=== PATIENT | female | born 1980 | race Hispanic/Latino ===

== ENCOUNTER → 2018-10-14 | Day surgery (SDC) | payer OTHER ==
[2018-10-05 15:22] LABS: BASOPHILS # (AUTO) 0.1 (0.0-0.1); BASOPHILS % 0.5 % (0.0-1.0); EOSINOPHILS # (AUTO) 0.5 (0.0-0.4); EOSINOPHILS % 5.7 % (0.0-6.0); HEMATOCRIT 39.8 % (34.2-44.1); HEMOGLOBIN 13.3 g/dL (12.0-16.0); LYMPHOCYTES % 32.7 % (18.0-39.1); MEAN CORPUSCULAR HEMOGLOBIN 28.7 pg (28-32); MEAN CORPUSCULAR HGB CONC 33.4 g/dL (31-35); MEAN CORPUSCULAR VOLUME 85.8 fL (81-99); MONOCYTES # (AUTO) 0.7 (0.2-0.8); MONOCYTES % 7.4 % (4.4-11.3); NEUTROPHILS # (AUTO) 4.9 (2.1-6.9); NEUTROPHILS % 53.4 % (38.7-80.0); PLATELET COUNT 419 x10e3/uL (140-360); RED BLOOD COUNT 4.64 x10e6/uL (3.6-5.1); RED CELL DISTRIBUTION WIDTH 12.6 % (11.7-14.4)
[2018-10-05 15:49] LABS: ANION GAP 15.6 mmol/L (8-16); BLOOD UREA NITROGEN 13 mg/dL (7-26); BUN/CREATININE RATIO 19 (6-25); CALCIUM 9.2 mg/dL (8.4-10.2); CARBON DIOXIDE 22 mmol/L (22-29); CHLORIDE 105 mmol/L (98-107); CREATININE, SERUM 0.67 mg/dL (0.57-1.11); EST GLOMERULAR FILTRATION RATE > 60 ML/MIN (60-); GLUCOSE 103 mg/dL (74-118); POTASSIUM 3.6 mmol/L (3.5-5.1); SODIUM 139 mmol/L (136-145)
[~2018-10-14] MED LIST: ACETAMINOPHEN 1000 MG/100 ML 100 ML IV ONE; BETAMETHASONE DISODIUM PHOS 6 MG/ML VIAL ONE; BUPIVACAINE HCL 0.5% INJ 30 ML VIAL INJ ONE; CEFAZOLIN SOD 1 GM/NS 50ML 50 ML IV ONE; DEXAMETHASONE SOD PHOS INJ 4 MG/ML VIAL ONE; FENOPROFEN CAL600 MG PO; FENTANYL CITRATE/PF 100MCG/2 ML INJ ONE; FLONASE; HYDROMORPHONE 2MG/ML 2 MG/ML ML ONE; KETOROLAC TROMETHAMINE 30 MG/ML VIAL ONE; LIDOCAINE HCL 1% LOCAL INJ 20 ML VIAL ONE; LIDOCAINE HCL 2% LOCAL INJ 5 ML SDV VIAL INJ ONE; MIDAZOLAM HCL 2 MG/2 ML VIAL ONE; MORPHINE SULFATE INJ 4 MG/ML INJ 1ML ONE; MUPIROCIN 2% OINT 22 GM TUBE ONE; ONDANSETRON HCL INJ 2MG/ML 2ML 2 MG/ML VIAL ONE; PROPOFOL IV EMULSION 10 MG/ML 20 ML VIAL ONE; SEVOFLURANE INHAL SOLN 250 ML PEN BTL ONE; SINGULAIR10 MG PO
--- OUTSIDE RECORDS SUMMARY | 2018-10-14 06:22 | XMS REPORT | Clinical Summary ---
Author Author [facility] Organization [facility] Address Unknown Phone Unavailable Care Team Providers Care Donor Relations Manager Name Role Phone Vinicius Quinonez MD PCP Allergies Comments Active Allergy Reactions Severity Noted Date No Known Drug Allergies Medications End Date Status Medication Sig Dispensed Refills Start Date Active fexofenadine (MILTON) 60 Take 60 mg by 0 MG tablet mouth daily. Active montelukast (SINGULAIR) Take 1 tablet 90 tablet 1 10 mg tabletIndications: (10 mg total) 9 Environmental allergies by mouth nightly. Active fluticasone (FLONASE) 50 SPRAY 2 16 mL 0 mcg/actuation nasal SPRAYS INTO 9 sprayIndications: EACH NOSTRIL Environmental allergies, EVERY DAY Sinus pressure, Sensation of fullness in both ears 10/20/2017 Discontinued sodium,potassium,mag Dispense kit 1 Bottle 0 sulfates (SUPREP BOWEL and follow 8 PREP KIT) 17.5-3.13-1.6 directions gram recon soln per office 08/25/2018 Discontinued lidocaine (XYLOCAINE) 5 % Apply 2 to 4 3 ointment grams TO THE 8 foot/toe 3 to 4 times a day NEEDED for pain 09/25/2018 Discontinued fluticasone (FLONASE) 50 2 sprays (100 15.8 mL 0 mcg/actuation nasal mcg total) by 9 sprayIndications: Each Nare Environmental allergies, route daily. Sinus pressure, Sensation of fullness in both ears Active Problems Problem Noted Date Radial styloid tenosynovitis 12/20/2016 Comments Yes Encounters Care Team Description Date Type Specialty Socorro Ying MD Environmental allergies; Sinus pressure; Sensation of fullness in both ears 09/25/2018 Refill Internal Medicine Maria Grant MA 08/31/2018 Telephone Internal Medicine Socorro Ying MD Routine general medical examination at a health care facility (Primary Dx); Establishing care with new doctor, encounter for; Dietary counseling; Exercise counseling; Cervical cancer screening; Environmental allergies; Sinus pressure; Sensation of fullness in both ears 08/25/2018 Office Visit Internal Medicine Monico Gallardo MD Right upper quadrant abdominal pain 11/17/2017 Hospital Radiology Encounter Monico Gallardo MD Right upper quadrant abdominal pain 10/20/2017 Lab Lab Monico Gallardo MD Right upper quadrant abdominal pain (Primary Dx) 10/20/2017 Office Visit Gastroenterology Zoie Ferrera MA 10/15/2017 Telephone Gastroenterology Monico Gallardo MD 10/13/2017 Lab Lab after 10/13/2017 Family History Medical History Relation Name Comments No Known Problems Father Hypertension Mother Colon cancer Neg Hx Colon polyps Neg Hx Relation Name Status Comments Father Alive Mother Alive Social History Date Tobacco Use Types Packs/Day Years Used Never Smoker Smokeless Tobacco: Never Used Alcohol Use Drinks/Week oz/Week Comments Yes Comments Yes Sex Assigned at Date Recorded Not on file Industry Job Start Date Occupation Not on file Not on file Not on file Travel End Travel History Travel Start No recent travel history available. Last Filed Vital Signs Time Taken Vital Sign Reading 08/25/2018 2:59 PM [facility] Blood Pressure 133/85 08/25/2018 2:59 PM [facility] Pulse 67 - Temperature - - Respiratory Rate - - Oxygen Saturation - - Inhaled Oxygen - Concentration 08/25/2018 2:59 PM [facility] Weight 86.2 kg (190 lb) 08/25/2018 2:59 PM [facility] Height 160 cm (5' 3") 08/25/2018 2:59 PM [facility] Body Mass Index 33.66 Plan of Treatment Health Maintenance Due Date Last Done Comments CERVICAL CANCER SCREENING 07/29/2019 07/29/2016 INFLUENZA VACCINE Completed 04/18/2018 Procedures Comments Procedure Name Priority Date/Time Associated Diagnosis URINALYSIS, COMPLETE, Routine 08/25/2018 Routine general medical WITH REFLEX TO CULTURE 3:45 PM [facility] examination at a health care facility THYROID STIMULATING Routine 08/25/2018 Routine general medical HORMONE 3:45 PM [facility] examination at a health care facility T4, FREE Routine 08/25/2018 Routine general medical 3:45 PM [facility] examination at a health care facility LIPID PANEL Routine 08/25/2018 Routine general medical 3:45 PM [facility] examination at a health care facility HEMOGLOBIN A1C Routine 08/25/2018 Routine general medical 3:45 PM [facility] examination at a health care facility COMPREHENSIVE METABOLIC Routine 08/25/2018 Routine general medical PANEL 3:45 PM [facility] examination at a health care facility CBC WITH PLATELET AND Routine 08/25/2018 Routine general medical DIFFERENTIAL 3:45 PM [facility] examination at a health care facility US ABDOMEN COMPLETE Routine 11/17/2017 Right upper quadrant 11:22 AM CDT abdominal pain LIPASE LEVEL Routine 10/20/2017 Right upper quadrant 10:40 AM [facility] abdominal pain AMYLASE LEVEL Routine 10/20/2017 Right upper quadrant 10:40 AM [facility] abdominal pain COMPREHENSIVE METABOLIC Routine 10/20/2017 Right upper quadrant PANEL 10:40 AM [facility] abdominal pain CBC HEMOGRAM Routine 10/20/2017 Right upper quadrant 10:40 AM [facility] abdominal pain SURGICAL PATHOLOGY Routine 10/13/2017 REQUEST 10:40 AM [facility] after 10/13/2017 Results * URINALYSIS, COMPLETE, WITH REFLEX TO CULTURE (08/25/2018 3:45 PM [facility]) Color, UA YELLOW YELLOW [facility] [place] Appearance CLEAR CLEAR [facility] [place] Specific gravity, urine 1.025 1.001 - 1.035 [facility] [place] pH, urine < OR=5.0 5.0 - 8.0 [facility] [place] Glucose, urine NEGATIVE NEGATIVE [facility] [place] Bilirubin, UA NEGATIVE NEGATIVE [facility] [place] Ketones, UA NEGATIVE NEGATIVE [facility] [place] Occult blood, urine NEGATIVE NEGATIVE [facility] [place] Protein, UA NEGATIVE NEGATIVE [facility] [place] Nitrite, UA NEGATIVE NEGATIVE [facility] [place] Leukocyte esterase, UA NEGATIVE NEGATIVE [facility] [place] WBC, UA 0-5 < OR=5 /HPF [facility] [place] RBC, UA 0-2 < OR=2 /HPF [facility] [place] Squamous epithelial 6-10 (A) < OR=5 /HPF [facility] cells, UA [place] Bacteria, UA FEW (A) NONE SEEN /HPF [facility] [place] Hyaline casts, UA NONE SEEN NONE SEEN /LPF [facility] [place] Comment FEW MUCOUS THREADS [facility] [place] Reflex NO CULTURE INDICATED [facility] [place] Narrative Performed At FASTING:YES [facility] FASTING: YES Resulting Agency Comment Performing Organization Information: Site ID: [id number] Name: [facility] Address: [address] [place] [id number] Director: Desirae Scott Performing Organization Address City/State/Zipcode Phone Number [facility] [place] [address] [place] [phone] * CBC with platelet and differential (08/25/2018 3:45 PM [facility]) WBC 6.2 3.8 - 10.8 Thousand/uL [facility] [place] RBC 4.84 3.80 - 5.10 Million/uL [facility] [place] HGB 13.8 11.7 - 15.5 g/dL [facility] [place] HCT 40.9 35.0 - 45.0 % [facility] [place] MCV 84.5 80.0 - 100.0 fL [facility] [place] MCH 28.5 27.0 - 33.0 pg [facility] [place] MCHC 33.7 32.0 - 36.0 g/dL [facility] [place] RDW 12.3 11.0 - 15.0 % [facility] [place] Platelet count 422 (H) 140 - 400 Thousand/uL [facility] [place] MPV 10.1 7.5 - 12.5 fL [facility] [place] Neutrophils, absolute 2,957 1,500 - 7,800 cells/uL [facility] [place] Lymphocytes, absolute 2,561 850 - 3,900 cells/uL [facility] [place] Monocytes, absolute 347 200 - 950 cells/uL [facility] [place] Eosinophils, absolute 273 15 - 500 cells/uL [facility] [place] Basophils, absolute 62 0 - 200 cells/uL [facility] [place] Neutrophils 47.7 % [facility] [place] Lymphocytes 41.3 % [facility] [place] Monocytes 5.6 % [facility] [place] Eosinophils 4.4 % [facility] [place] Basophils + RC 1.0 % [facility] [place] Specimen Blood Narrative Performed At FASTING:YES [facility] FASTING: YES Resulting Agency Comment Performing Organization Information: Site ID: [id number] Name: [facility] Address: [address] [place] [phone] Director: Desirae Scott Performing Organization Address [facility] [place] [address] * Thyroid stimulating hormone (08/25/2018 3:45 PM [facility]) TSH 2.92 mIU/L [facility] Comment: [place] Reference Range > or=20 Years0.40-4.50 Ranges First trimester0.26-2.66 Second trimester 0.55-2.73 Third trimester0.43-2.91 Specimen Blood Narrative Performed At FASTING:YES [facility] FASTING: YES Resulting Agency Comment Performing Organization Information: Site ID: [facility]GA Name: [facility] Address: [address] [place] [address] Director: Desirae Scott Performing Organization Address [facility] [place] [address] * T4, free (08/25/2018 3:45 PM [facility]) T4, free 1.3 0.8 - 1.8 ng/dL [facility] [place] Specimen Blood Narrative Performed At FASTING:YES [facility] FASTING: YES Resulting Agency Comment Performing Organization Information: Site ID: RGA Name: [facility] Address: [address] [place], [place] [id number] Director: Desirae Scott Performing Organization Address [facility] [place] [address] * Hemoglobin A1c (08/25/2018 3:45 PM [facility]) Hemoglobin A1C 5.2 <5.7 % of total Hgb [facility] Comment: [place] For the purpose of screening for the presence of diabetes: <5.7% Consistent with the absence of diabetes 5.7-6.4%Consistent with increased risk for diabetes (predi abetes) > or=6.5%Consistent with diabetes This assay result is consistent with a decreased risk of diabetes. Currently, no consensus exists regarding use of hemoglobin A1c for diagnosis of diabetes in children. According to [place] Diabetes Association (ADA) guidelines, hemoglobin A1c <7.0% represents optimal control in non- diabetic patients. Different metrics may apply to specific patient populations. Standards of Medical Care in Diabetes(ADA). Specimen Blood Narrative Performed At FASTING:YES [facility] FASTING: YES Resulting Agency Comment Performing Organization Information: Site ID: [facility]EL Name: [facility] Address: [address] [place] [phone] Director: Desirae Scott Performing Organization Address [facility] Phone Number [place] [employer] [place] [address] * Lipid panel (08/25/2018 3:45 PM [facility]) Cholesterol, total 250 (H) <200 mg/dL [facility] HDL cholesterol 68 >50 mg/dL [facility] [place] Triglycerides 139 <150 mg/dL [facility] LDL cholesterol 156 (H) mg/dL (calc) [facility] calculated Comment: [place] Reference range: <100 Desirable range <100 mg/dL for primary prevention; <70 mg/dL for patients with CHD or diabetic patients with > or=2 CHD risk factors. LDL-C is now calculated using the Sanchez-Milo calculation, which is a validated novel method providing better accuracy than the Friedewald equation in the estimation of LDL-C. Sanchez GALLEGOS et al. WINSOME. 2013;310(19): 8857-6748 (http://education.Run2Sport.ViFlux/faq/SXJ988) Cholesterol/HDL ratio 3.7 <5.0 (calc) [facility] [place] Non-HDL cholesterol 182 (H) <130 mg/dL (calc) [facility] Comment: [place] For patients with diabetes plus 1 major ASCVD risk factor, treating to a non-HDL-C goal of <100 mg/dL (LDL-C of <70 mg/dL) is considered a therapeutic option. Specimen Blood Narrative Performed At FASTING:YES [facility] FASTING: YES Resulting Agency Comment Performing Organization Information: Site ID: [facility]ANTEL Name: [facility] Address: [address] [place] [phone] Director: Desirae Scott Performing Organization Address [facility]/Zipcode Phone Number [place] [facility] [place] [address] [place] [address] * Comprehensive metabolic panel (08/25/2018 3:45 PM [facility]) Only the most recent of 2 results within the time period is included. Glucose 89 65 - 99 mg/dL [facility] Comment: [place] Fasting reference interval BUN, whole blood 12 7 - 25 mg/dL [facility] Creatinine 0.41 (L) 0.50 - 1.10 mg/dL [facility] [place] EGFR Non-Afr. [place] 133 > OR=60 mL/min/1.73m2 [facility] [place] EGFR 154 > OR=60 mL/min/1.73m2 [facility] BUN/creatinine ratio 29 (H) 6 - 22 (calc) [facility] [place] Sodium 141 135 - 146 mmol/L [facility] [place] Potassium 4.0 3.5 - 5.3 mmol/L [facility] [place] Chloride 104 98 - 110 mmol/L [facility] CO2 26 20 - 32 mmol/L [facility] [place] Calcium 9.3 8.6 - 10.2 mg/dL [facility] Protein 7.0 6.1 - 8.1 g/dL [facility] Albumin, S 4.4 3.6 - 5.1 g/dL [facility] Globulin, total 2.6 1.9 - 3.7 g/dL (calc) [facility] Albumin/globulin ratio 1.7 1.0 - 2.5 (calc) [facility] Total bilirubin 0.5 0.2 - 1.2 mg/dL [facility] Alkaline phosphatase 89 33 - 115 U/L [facility] AST 16 10 - 30 U/L [facility] ALT 14 6 - 29 U/L [facility] [place] Specimen Blood Narrative Performed At FASTING:YES [facility] FASTING: YES Resulting Agency Comment Performing Organization Information: Site ID: [id number] Name: [facility] Address: [address] [place] [phone] Director: Desirae Scott Performing Organization Address City/State/Zipcode Phone Number [employer] [place] [phone] * US Abdomen Complete (11/17/2017 11:22 AM CDT) Narrative Performed At EXAM: US ABDOMEN COMPLETE [facility] CLINICAL DATA:Right upper abdominal pain COMPARISON: None. FINDINGS: LIVER:The liver demonstrates normal echogenicity without focal mass or intrahepatic biliary ductal dilatation. MPV:Doppler evaluation of the portal vein demonstrates normal hepatopetal flow. GALLBLADDER:The gallbladder is without evidence of calculi. The gallbladder wall is not thickened and there is no pericholecystic fluid. CBD: Common bile duct is not dilated measuring 3 mm. PANCREAS:The visualized portions of the pancreas are within normal limits. SPLEEN:The spleen is homogeneous and not enlarged. KIDNEYS:The kidneys are normal in size and echogenicity. There is no evidence of hydronephrosis. AORTA:The visualized upper abdominal aorta demonstrates no evidence of ectasia or aneurysm. IVC:The visualized portions of the inferior vena cava are unremarkable. ASCITES: No abnormal abdominal fluid collections are visualized. There is no evidence of ascites. PLEURAL EFFUSION:There are no pleural effusions. IMPRESSION: Normal abdominal ultrasound examination. [facility]-[id number] Procedure Note Interface, Radiology Results Incoming - 11/17/2017 11:40 AM CDT EXAM: US ABDOMEN COMPLETE CLINICAL DATA: Right upper abdominal pain COMPARISON: None. FINDINGS: LIVER: The liver demonstrates normal echogenicity without focal mass or intrahepatic biliary ductal dilatation. MPV: Doppler evaluation of the portal vein demonstrates normal hepatopetal flow. GALLBLADDER: The gallbladder is without evidence of calculi. The gallbladder wall is not thickened and there is no pericholecystic fluid. CBD: Common bile duct is not dilated measuring 3 mm. PANCREAS: The visualized portions of the pancreas are within normal limits. SPLEEN: The spleen is homogeneous and not enlarged. KIDNEYS: The kidneys are normal in size and echogenicity. There is no evidence of hydronephrosis. AORTA: The visualized upper abdominal aorta demonstrates no evidence of ectasia or aneurysm. IVC: The visualized portions of the inferior vena cava are unremarkable. ASCITES: No abnormal abdominal fluid collections are visualized. There is no evidence of ascites. PLEURAL EFFUSION: There are no pleural effusions. IMPRESSION: Normal abdominal ultrasound examination. [facility]-[id number] Performing Organization Address City/State/Zipcode Phone Number [facility] [address] [place] [address] * CBC hemogram (10/20/2017 10:40 AM [facility]) WBC 5.7 3.8 - 10.8 Thousand/uL [facility] [place] RBC 4.66 3.80 - 5.10 Million/uL [facility] [place] HGB 13.1 11.7 - 15.5 g/dL [facility] HCT 39.7 35.0 - 45.0 % [facility] MCV 85.2 80.0 - 100.0 fL [facility] [place] MCH 28.1 27.0 - 33.0 pg [facility] [place] MCHC 33.0 32.0 - 36.0 g/dL [facility] [place] RDW 12.9 11.0 - 15.0 % [facility] [place] Platelet count 416 (H) 140 - 400 Thousand/uL [facility] [place] MPV 10.2 7.5 - 12.5 fL [facility] [place] Specimen Blood Resulting Agency Comment Performing Organization Information: Site ID: RGA Name: [facility] Address: [address] [place], [place] [id number] Director: Desirae Scott MD Performing Organization Address City/State/[facility] [place] [address] * Lipase level (10/20/2017 10:40 AM [facility]) Lipase 9 7 - 60 U/L [facility] [place] Specimen Blood Resulting Agency Comment Performing Organization Information: Site ID: RGA Name: [facility] Address: [address] [place] [address] Director: Desirae Scott MD Performing Organization Address City/[facility] [place]erc[place] [address] * Amylase level (10/20/2017 10:40 AM [facility]ER) Amylase 26 21 - 101 U/L [facility] [place] Specimen Blood Resulting Agency Comment Performing Organization Information: Site ID: [facility] Name: [facility] Address: [address] [place] [phone] Director: Desirae Scott MD Performing Organization Address City/[facility] [place]ercode [place] [address] * Surgical pathology request (10/13/2017 10:40 AM [facility]ER) [facility] DEPARTMENT OF PATHOLOGY AND GENOMIC MEDICINE Surgical pathology report See link below for PDF Lab [facility] DEPARTMENT OF Report PATHOLOGY AND GENOMIC MEDICINE Result status This is Final Report to [facility] DEPARTMENT OF [id number] PATHOLOGY AND GENOMIC MEDICINE Performing Organization Address City/State/Zipcode Phone Number [facility] DEPARTMENT OF [address] [place] [phone] PATHOLOGY AND GENOMIC MEDICINE after 10/13/2017 Insurance Payer Benefit Subscriber ID Type Phone Address Plan / Group CIGNA CIGNA OPEN xxxxxxxxxxx HMO ACCESS/NET WORK Advance Directives Patient has advance care planning documents on file. For more information, modesta ruiz contact: Davidson Tran [address] [place] [address]
--- OUTSIDE RECORDS SUMMARY | 2018-10-14 06:23 | XMS REPORT | Summary of Care ---
Author Author [facility] Organization [facility] Address Unknown Phone Unavailable Encounter ESTEBAN Miller(MICHAEL) [id number] Date(s): 09/25/16 - 09/25/16 [facility] [address] [place] [address]- Discharge Diagnosis: Abdominal pain Discharge Disposition: Home or Self Care Attending Physician: Imtiaz Davis MD Vital Signs Most recent to 1 2 oldest [Reference Range]: Height 160.02 cm (09/25/16 4:21 PM) Temperature Oral 98 DegF 98.3 DegF [96.4-99.1 DegF] (09/25/16 10:15 PM) (09/25/16 4:21 PM) Blood Pressure 150/80 mmHg 151/83 mmHg [90-140/60-90 mmHg] *HI* *HI* (09/25/16 10:15 PM) (09/25/16 4:21 PM) Respiratory Rate 18 BRMIN 18 BRMIN [14-20 BRMIN] (09/25/16 10:15 PM) (09/25/16 4:21 PM) Peripheral Pulse 88 bpm 91 bpm Rate [60-100 bpm] (09/25/16 10:15 PM) (09/25/16 4:21 PM) Weight 87.273 kg (09/25/16 4:21 PM) Body Mass Index 34.08 m2 (09/25/16 4:21 PM) Problem List No data available for this section Allergies, Adverse Reactions, Alerts Substance Reaction Severity Status NKDA Active Medications Saline Flush 0.9% 10 mL, Route: IVP, Drug Form: INJ, Dosing Weight 87.273, kg, PRN, PRN Line Flush , Start date: 09/25/16 16:26:00 SHIPPING ASSISTANT, Duration: 30 day, Stop date: 10/25/16 16:25 :00 SHIPPING ASSISTANT Notes: Same as: BD Posiflush Sterile Start Date: 09/25/16 Stop Date: 09/25/16 Status: Discontinued Ultracet oral tablet 1 tab, PO, Q8H, PRN Pain, X 10 day, # 30 tab, 0 Refill(s) Start Date: 09/25/16 Stop Date: 10/05/16 Status: Ordered Zofran ODT 4 mg oral tablet, disintegrating 4 mg=1 tab, PO, BID, PRN Nausea and Vomiting, Dissolve tab under tongue, X 5 day , # 10 tab, 0 Refill(s) Start Date: 09/25/16 Stop Date: 09/30/16 Status: Ordered Results ELECTROLYTES Most recent to 1 oldest [Reference Range]: Sodium Lvl [135-145 142 mEq/L mEq/L] (09/25/16 8:37 PM) Potassium Lvl 3.6 mEq/L [3.5-5.1 mEq/L] (09/25/16 8:37 PM) Chloride Lvl [95-109 108 mEq/L mEq/L] (09/25/16 8:37 PM) CO2 [24-32 mEq/L] 23 mEq/L *LOW* (09/25/16 8:37 PM) AGAP [10.0-20.0 14.6 mEq/L mEq/L] (09/25/16 8:37 PM) CHEM PANEL Most recent to 1 oldest [Reference Range]: Creatinine Lvl 0.51 mg/dL [0.50-1.40 mg/dL] (09/25/16 8:37 PM) eGFR 126 mL/min/1.73m2 1 *NA* (09/25/16 8:37 PM) BUN [7-22 mg/dL] 7 mg/dL (09/25/16 8:37 PM) B/C Ratio [6-25] 14 (09/25/16 8:37 PM) Glucose Lvl [70-99 88 mg/dL mg/dL] (09/25/16 8:37 PM) Total Protein 6.9 g/dL [6.4-8.4 g/dL] (09/25/16 8:37 PM) Albumin Lvl [3.5-5.0 3.3 g/dL g/dL] *LOW* (09/25/16 8:37 PM) Globulin [2.7-4.2 3.6 g/dL g/dL] (09/25/16 8:37 PM) A/G Ratio [0.7-1.6] 0.9 (09/25/16 8:37 PM) Calcium Lvl 8.2 mg/dL [8.5-10.5 mg/dL] *LOW* (09/25/16 8:37 PM) ALT [0-65 unit/L] 13 unit/L (09/25/16 8:37 PM) AST [0-37 unit/L] 8 unit/L (09/25/16 8:37 PM) Alk Phos [39-136 70 unit/L unit/L] (09/25/16 8:37 PM) Bili Total [0.2-1.3 0.2 mg/dL mg/dL] (09/25/16 8:37 PM) Lipase Lvl [73-393 97 unit/L unit/L] (09/25/16 8:37 PM) 1Result Comment: The eGFR is calculated using the CKD-EPI formula. In most young, healthy individuals the eGFR will be >90 mL/min/1.73m2. The eGFR declines with age. An eGFR of 60-89 may be normal in some populations, particularly the elderly, for whom the CKD-EPI formula has not been extensively validated. Use of the eGFR is not recommended in the following populations: Individuals with unstable creatinine concentrations, including patients and those with serious co-morbid conditions. Patients with extremes in muscle mass or diet. The data above are obtained from the National Kidney Disease Education Program ( NKDEP) which additionally recommends that when the eGFR is used in patients with extremes of body mass index for purposes of drug dosing, the eGFR should be mul tiplied by the estimated BMI. URINE CHEM Most recent to 1 oldest [Reference Range]: U Preg [Negative] Negative (09/25/16 8:37 PM) URINE AND STOOL Most recent to 1 oldest [Reference Range]: UA Turbidity [Clear] Clear (09/25/16 8:37 PM) UA Color [Yellow] Yellow *NA* (09/25/16 8:37 PM) UA pH [5.0-8.0] 6.5 (09/25/16 8:37 PM) UA Spec Grav 1.015 [<=1.030] (09/25/16 8:37 PM) UA Glucose Negative [Negative] (09/25/16 8:37 PM) UA Blood [Negative] Negative (09/25/16 8:37 PM) UA Ketones Negative [Negative] *NA* (09/25/16 8:37 PM) UA Protein Negative [Negative] (09/25/16 8:37 PM) UA Urobilinogen 0.2 EU/dL [0.1-1.0 EU/dL] (09/25/16 8:37 PM) UA Bili [Negative] Negative *NA* (09/25/16 8:37 PM) UA Leuk Est Trace [Negative] *ABN* (09/25/16 8:37 PM) UA Nitrite Negative [Negative] (09/25/16 8:37 PM) UA WBC [None Seen 0-2 /HPF /HPF] (09/25/16 8:37 PM) UA RBC [0-2 /HPF] 0-2 /HPF (09/25/16 8:37 PM) UA Bacteria [None Occasional /HPF Seen /HPF] (09/25/16 8:37 PM) UA Sq Epi [Few /LPF] Few /LPF (09/25/16 8:37 PM) UA Mucus [None Seen] None Seen (09/25/16 8:37 PM) HEMATOLOGY Most recent to 1 oldest [Reference Range]: WBC [3.7-10.4 K/CMM] 8.3 K/CMM (09/25/16 8:37 PM) RBC [4.20-5.40 4.46 M/CMM M/CMM] (09/25/16 8:37 PM) Hgb [12.0-16.0 g/dL] 12.6 g/dL (09/25/16 8:37 PM) Hct [36.0-48.0 %] 37.1 % (09/25/16 8:37 PM) MCV [80.0-98.0 fL] 83.2 fL (09/25/16 8:37 PM) MCH [27.0-31.0 pg] 28.2 pg (09/25/16 8:37 PM) MCHC [32.0-36.0 33.9 g/dL g/dL] (2/8/17 8:37 PM) RDW [11.5-14.5 %] 13.4 % (09/25/16 8:37 PM) Platelet [133-450 318 K/CMM K/CMM] (09/25/16 8:37 PM) MPV [7.4-10.4 fL] 8.4 fL (09/25/16 8:37 PM) Segs [45.0-75.0 %] 46.8 % (09/25/16 8:37 PM) Lymphocytes 37.8 % [20.0-40.0 %] (09/25/16 8:37 PM) Monocytes [2.0-12.0 6.1 % %] (09/25/16 8:37 PM) Eosinophils [0.0-4.0 8.0 % %] *HI* (09/25/16 8:37 PM) Basophils [0.0-1.0 1.3 % %] *HI* (09/25/16 8:37 PM) Segs-Bands # 3.9 K/CMM [1.5-8.1 K/CMM] (09/25/16 8:37 PM) Lymphocytes # 3.1 K/CMM [1.0-5.5 K/CMM] (09/25/16 8:37 PM) Monocytes # [0.0-0.8 0.5 K/CMM K/CMM] (09/25/16 8:37 PM) Eosinophils # 0.7 K/CMM [0.0-0.5 K/CMM] *HI* (09/25/16 8:37 PM) Basophils # [0.0-0.2 0.1 K/CMM K/CMM] (09/25/16 8:37 PM) Immunizations No data available for this section Procedures No data available for this section Social History Social History Type Response Smoking Status Never smoker; Exposure to Tobacco Smoke None; Cigarette Smoking Last 365 Days No; Reg Smoking Cessation Counseling No Assessment and Plan No data available for this section
--- OUTSIDE RECORDS SUMMARY | 2018-10-14 06:23 | XMS REPORT ---
Author Author [facility] Address Unknown Phone Unavailable Care Team Providers Care Holter Technician Name Role Phone UNKNOWN, REFFERING PP Unavailable COLTON SURAJ Unavailable Unavailable Problems This patient has no known problems. Allergies, Adverse Reactions, Alerts This patient has no known allergies or adverse reactions. Medications This patient has no known medications. Encounters Start Date/Time End Date/Time Encounter Type Admission Type Attending Clinicians Care Facility Care Department Encounter ID 2017-07-22 13:19:00 2017-07-22 13:19:00 Emergency E SURAJ SEGURA [facility] [id number] Results Test Description Test Time Test Comments Text Results Atomic Results Result Comments [id number]&PELVIS W/CONTRAST 2017-07-22 15:12:40 CT-H ABDOMEN AND PELVIS W/CONTRASTHISTORY: Right lower quadrant painCOMPARISON: None.TECHNIQUE: Axial images of the abdomen and pelvis were obtainedfollowing the administration of 100 mL Isovue- 300 intravenous contrast.Coronal and sagittal reformats were provided. One or more of thefollowing dose reduction techniques were used: Automated exposurecontrol, adjustment of the mA and/or kV according to patient size,and/or utilization of iterative reconstruction technique.FINDINGS:Lower thorax: The visualized lung bases are clear.Hepatobiliary: Unremarkable. No biliary ductal dilatation.Gallbladder: No calcified gallstones are identified. The gallbladderwall appears normal.Spleen: Unremarkable.Pancreas: Unremarkable.Adrenals: Unremarkable.Kidneys/ureters: Unremarkable.Bowel: No abnormal bowel wall thickening or evidence of obstruction. Theappendix is normal.Pelvic organs/bladder: A 2.5 cm cyst is seen in the right ovary. Theurinary bladder shows mild nonspecific wall thickening. A small amountof gas is seen in the vagina.Vessels: Unremarkable.Lymph nodes: No lymphadenopathy.Peritoneum/Retroperitoneum: No ascites or free air is identified. Thereis no free fluid collection.Bones/soft tissues: No destructive bony lesions.IMPRESSION:1. Normal appendix.2. Mild thickening of the urinary bladder wall. Correlate withurinalysis to exclude UTI.3. Small right ovarian cyst.LOCATION: R16 Lipase 2017-07-22 14:24:00 Lipase (test code=LIP) 17 U/L 13-60 Comprehensive Metabolic [id number] 14:24:00* Test Item Value Reference Range Comments Sodium (test code=NA) 142 mmol/L 135-145 Potassium (test code=K) 3.8 mmol/L 3.5-5.1 Chloride (test code=CL) 105 mmol/L 98-105 Carbon Dioxide (test code=CO2) 27 mmol/L 22-29 Anion Gap (test code=AGAP) 10 mmol/L 7-16 Glucose (test code=GLU) 98 mg/dL 70-115 Blood Urea Nitrogen (test code=BUN) 8 mg/dL 6-20 Creatinine (test code=CREAT) 0.6 mg/dL 0.5-0.9 BUN/Creatinine Ratio (test code=BCRATIO) 13.3 Calcium (test code=CA) 9.5 mg/dL 8.3-10.5 Prot Total (test code=TP) 6.7 g/dL 6.4-8.3 Albumin (test code=ALB) 4.5 g/dL 3.5-5.2 A/G Ratio (test code=AGRATIO) 2.0 Ratio Globulin (test code=GLOB) 2.2 2.9-3.1 Bili Total (test code=TBIL) 0.5 mg/dL 0.1-0.9 Alk Phos (test code=APHOS) 85 U/L 35-104 AST (test code=AST) 19 U/L 1-32 ALT (test code=ALT) 18 U/L 1-33 Estimated GFR (test code=GFR) >60 mL/min/1.73m2 eGFR (estimated Glomerular Filtration Rate) is an estimated value,calculated from the patient's serum creatinine using the MDRD equation.It is NOT the patient's actual GFR. The eGFR provides a more clinicallyuseful measure of kidney disease than serum creatinine alone.This calculation takes sex and race into account, if the informationis provided. If the race is not provided, and the patient isAfrican-[place] Citizen, multiply by 1.212. If sex is not provided, and thepatient is female, multiply by 0.742. Results for patients <18 years ofage have not been validated by the MDRD study and should be interpretedwith caution.eGFR Result Interpretation:eGFR > or=60 is in the Normal RangeeGFR < 60 may mean kidney diseaseeGFR < 15 may mean kidney failureRanges recommended by the National Kidney Foundat ion,http://nkdep.nih.gov BHCG, Serum, [id number] 14:15:00* Test Item Value Reference Range Comments Preg Qual [Se] (test code=BSHCG) Negative Negative CBC with [id number] 14:14:00* Test Item Value Reference Range Comments WBC (test code=WBC) 6.5 K/cumm 4.4-10.5 RBC (test code=RBC) 4.62 M/cumm 3.75-5.20 Hemoglobin (test code=HGB) 13.3 gm/dL 12.2-14.8 Hematocrit (test code=HCT) 39.3 % 36.5-44.4 MCV (test code=MCV) 85.1 fL 80-100 MCH (test code=MCH) 28.8 pg 27.0-32.5 MCHC (test code=MCHC) 33.8 % 32.0-37.5 RDW (test code=RDW) 13.1 % 11.5-14.5 Platelet Count (test code=PLTCT) 397 K/cumm 140-440 MPV (test code=MPV) 10.0 fL Diff Method (test code=DIFFM) Auto Neutrophil (test code=NEUT) 46.3 % 36-70 Lymphocyte (test code=LYMPH) 40.1 % 12-44 Monocyte (test code=MONO) 6.3 % 0-11 Eosinophil (test code=EOS) 7.0 % 0-7 Basophil (test code=BASO) 0.3 % 0-2 Neutro Abs (test code=ANEUT) 3.0 K/cumm 1.6-7.4 Lymph Abs (test code=ALYMPH) 2.6 K/cumm 0.5-4.6 [place] Abs (test code=AMONO) 0.4 K/cumm 0.0-1.2 Eos Abs (test code=AEOS) 0.46 K/cumm 0.00-0.74 Baso Abs (test code=ABASO) 0.0 K/cumm 0.00-0.21 Urinalysis [id number] 13:56:00* Test Item Value Reference Range Comments Color (test code=COLOR) Yellow Yellow,Straw,Pl yellow Clarity (test code=CLAR) Clear Clear Specific Springer (test code=SPGR) 1.015 1.001-1.035 pH (test code=PH) 7.5 5.0-9.0 Ketone (test code=KET) Negative Negative Glucose (test code=GLUCUR) Negative Negative Protein (test code=PROT) Negative Negative Bilirubin (test code=BILI) Negative Negative Occult Blood (test code=UDOB) Negative Negative Urobilinogen (test code=UROB) 1.0 0.2-1.0 Nitrite (test code=NIT) Negative Negative Leuk Esterase (test code=LEUK) Negative Negative Micros Exam (test code=MEXAM) Not indicated
--- OUTSIDE RECORDS SUMMARY | 2018-10-14 06:23 | XMS REPORT | Continuity of Care Document ---
Author Author [facility] Interface Address Unknown Phone Unavailable Problems Problem Status Onset Date Classification Date Reported Comments Source Discharge Diagnosis: Abdominal pain 09/25/2016 09/28/[address] [facility] FEVER/LOW RIGHT SIDE ABDOMINAL PAIN/BACK Active 09/25/[address] [facility] Medications Medication Details Route Status Patient Instructions Ordering Provider Order Date Source Acetaminophen 325 MG / tramadol hydrochloride 37.5 MG Oral Tablet [Ultracet] 1 tab, PO, Q8H, PRN Pain, X 10 day, # 30 tab, 0 Refill(s) Active 09/26/[address] [facility] Ondansetron 4 MG Disintegrating Tablet [Zofran] 4 mg=1 tab, PO, BID, PRN Nausea and Vomiting, Dissolve tab under tongue, X 5 day, # 10 tab, 0 Refill(s) Active 09/26/[address] [facility] Saline Flush 0.9% 10 mL, Route: IVP, Drug Form: INJ, Dosing Weight 87.273, kg, PRN, PRN Line Flush, Start date: 09/25/16 16:26:00 APPRAISAL MANAGER, Duration: 30 day, Stop date: 10/25/16 16:25:00 CSTNotes: Same as: BD Posiflush Sterile Inactive 09/25/[address] [facility] Allergies, Adverse Reactions, Alerts Substance Category Reaction Severity Reaction type Status Date Reported Comments Source Immunizations Immunization Date Given Site Status Last Updated Comments Source Results Order Name Results Value Reference Range Date Interpretation Comments Source CHEM PANEL Lipase Lvl 97 unit/L 73 - 393 09/26/[address] [facility] CHEM PANEL eGFR 126 mL/min/1.73m2 09/26/2016 Result Comment: The eGFR is calculated using the [...] from the National Kidney Disease Education Program (NKDEP) which additionally recommends that when the eGFR is used in patients with extremes of body mass index for purposes of drug dosing, the eGFR should be multiplied by the estimated BMI. [facility] CHEM PANEL Bili Total 0.2 mg/dL 0.2 - 1.3 09/26/[address] [facility] CHEM PANEL Alk Phos 70 unit/L 39 - 136 09/26/[address] [facility] CHEM PANEL ALT 13 unit/L 0 - 65 09/26/[address] [facility] CHEM PANEL AST 8 unit/L 0 - 37 09/26/[address] [facility] CHEM PANEL Albumin Lvl 3.3 g/dL 3.5 - 5.0 09/26/[address] [facility] CHEM PANEL Glucose Lvl 88 mg/dL 70 - 99 09/26/[address] [facility] CHEM PANEL Creatinine Lvl 0.51 mg/dL 0.50 - 1.40 09/26/[address] [facility] CHEM PANEL BUN 7 mg/dL 7 - 22 09/26/[address] [facility] CHEM PANEL Sodium Lvl 142 meq/L 135 - 145 09/26/[address] [facility] CHEM PANEL Potassium Lvl 3.6 meq/L 3.5 - 5.1 09/26/[address] [facility] CHEM PANEL Chloride Lvl 108 meq/L 95 - 109 09/26/[address] [facility] CHEM PANEL Total Protein 6.9 g/dL 6.4 - 8.4 09/26/[address] [facility] CHEM PANEL CO2 23 meq/L 24 - 32 09/26/[address] [facility] CHEM PANEL Calcium Lvl 8.2 mg/dL 8.5 - 10.5 09/26/[address] [facility] CHEM PANEL AGAP 14.6 meq/L 10.0 - 20.0 09/26/[address] [facility] CHEM PANEL B/C Ratio 14 6 - 25 09/26/[address] [facility] CHEM PANEL Globulin 3.6 g/dL 2.7 - 4.2 09/26/[address] [facility] CHEM PANEL A/G Ratio 0.9 0.7 - 1.6 09/26/[address] [facility] HEMATOLOGY Platelet 318 K/CMM 133 - 450 09/26/[address] [facility] HEMATOLOGY RDW 13.4 % 11.5 - 14.5 09/26/[address] [facility] HEMATOLOGY MCHC 33.9 g/dL 32.0 - 36.0 09/26/[address] [facility] HEMATOLOGY MPV 8.4 fL 7.4 - 10.4 09/26/[address] [facility] HEMATOLOGY MCV 83.2 fL 80.0 - 98.0 09/26/[address] [facility] HEMATOLOGY MCH 28.2 pg 27.0 - 31.0 09/26/[address] [facility] HEMATOLOGY Hgb 12.6 g/dL 12.0 - 16.0 09/26/[address] [facility] HEMATOLOGY RBC 4.46 M/CMM 4.20 - 5.40 09/26/[address] [facility] HEMATOLOGY WBC 8.3 K/CMM 3.7 - 10.4 09/26/[address] [facility] HEMATOLOGY Hct 37.1 % 36.0 - 48.0 09/26/[address] [facility] HEMATOLOGY Basophils # 0.1 K/CMM 0.0 - 0.2 09/26/[address] [facility] HEMATOLOGY Lymphocytes # 3.1 K/CMM 1.0 - 5.5 09/26/[address] [facility] HEMATOLOGY Eosinophils # 0.7 K/CMM 0.0 - 0.5 09/26/[address] [facility] HEMATOLOGY Monocytes # 0.5 K/CMM 0.0 - 0.8 09/26/[address] [facility] HEMATOLOGY Segs-Bands # 3.9 K/CMM 1.5 - 8.1 09/26/[address] [facility] HEMATOLOGY Basophils 1.3 % 0.0 - 1.0 09/26/[address] [facility] HEMATOLOGY Eosinophils 8.0 % 0.0 - 4.0 09/26/[address] [facility] HEMATOLOGY Segs 46.8 % 45.0 - 75.0 09/26/[address] [facility] HEMATOLOGY Monocytes 6.1 % 2.0 - 12.0 09/26/[address] [facility] HEMATOLOGY Lymphocytes 37.8 % 20.0 - 40.0 09/26/[address] [facility] URINE AND STOOL UA Mucus None Seen (09/25/16 8:37 PM) None Seen 09/26/[address] [facility] URINE AND STOOL UA Blood Negative (09/25/16 8:37 PM) Negative 09/26/[address] [facility] URINE AND STOOL UA Nitrite Negative (09/25/16 8:37 PM) Negative 09/26/[address] [facility] URINE AND STOOL UA Bili Negative *NA* (09/25/16 8:37 PM) Negative 09/26/[address] [facility] URINE AND STOOL UA Ketones Negative *NA* (09/25/16 8:37 PM) Negative 09/26/[address] [facility] URINE AND STOOL UA Urobilinogen 0.2 EU/dL 0.1 - 1.0 09/26/[address] [facility] URINE AND STOOL UA RBC 0-2 /HPF 0 - 2 09/26/[address] [facility] URINE AND STOOL UA Leuk Est Trace *ABN* (09/25/16 8:37 PM) Negative 09/26/[address] [facility] URINE AND STOOL UA WBC 0-2 /HPF None Seen /HPF 09/26/[address] [facility] URINE AND STOOL UA Sq Epi Few /LPF Few /LPF 09/26/[address] [facility] URINE AND STOOL UA Bacteria Occasional /HPF None Seen /HPF 09/26/[address] [facility] URINE AND STOOL UA Color Yellow *NA* (09/25/16 8:37 PM) Yellow 09/26/[address] [facility] URINE AND STOOL UA Protein Negative (09/25/16 8:37 PM) Negative 09/26/[address] [facility] URINE AND STOOL UA Turbidity Clear (09/25/16 8:37 PM) Clear 09/26/[address] [facility] URINE AND STOOL UA pH 6.5 5.0 - 8.0 09/26/[address] [facility] URINE AND STOOL UA Spec Grav 1.015 <=1.030 09/26/[address] [facility] URINE AND STOOL UA Glucose Negative (09/25/16 8:37 PM) Negative 09/26/[address] [facility] URINE CHEM U Preg Negative (09/25/16 8:37 PM) Negative 09/26/[address] [facility] Abdomen RUQ US Abdomen RUQ US Abdomen RUQ US TECHNIQUE: Grayscale and color Doppler images of the right upper quadrant of the abdomen were performed with a curvilinear transducer. Static images are submitted for review. CLINICAL HX: Abdominal pain, acute; right mid and right upper abdomen pain COMPARISON: None FINDINGS: LIVER: There is diffuse heterogeneous increase in echogenicity of the liver suggestive of fatty infiltration and/or nonspecific hepatocellular disease. GALL BLADDER AND BILE DUCTS: Gallbladder is partially contracted but without evidence for obvious gallstones. CBD measures 2.5 mm. PANCREAS: Pancreas is partially obscured by bowel gas. Visualized portion of the pancreas is unremarkable. Right kidney: Right kidney demonstrates normal echotexture and size and reveals no gross masses or any evidence for hydronephrosis. Maximal sagittal diameter of the right kidney is 12.3 cm. Vascular: Midline structures are partially obscured due to bowel gas. Visualized portion of the IVC is unremarkable. Ascites: No free fluid is present in the right upper abdomen. No significant effusion is noted on the right. IMPRESSION: Gallbladder is partially contracted but no obvious gallstones. There is diffuse heterogeneous increase in echogenicity of the liver suggestive of fatty infiltration and/or nonspecific hepatocellular disease. No other significant sonographic abnormality is noted in the RUQ of the abdomen. SL: VANE 09/25/2016 - - Read by: Nolan Almanzar MD Dictated Date/time: 09/25/16 18:32 Electronically Signed by: Nolan Almanzar MD 09/25/16 18:[address] [facility] Vital Signs Vital Sign Value Date Comments Source Systolic (mm Hg) 150 09/26/[address] [facility] Diastolic (mm Hg) 80 09/26/[address] [facility] Temperature Oral (F) 98 F 09/26/[address] [facility] Heart Rate 88 09/26/[address] [facility] Respitory Rate 18 09/26/[address] [facility] Weight 87.273 09/25/[address] [facility] Height 160.02 cm 09/25/[address] [facility] BMI Calculated 34.08 09/25/[address] [facility] Respitory Rate 18 09/25/[address] [facility] Systolic (mm Hg) 151 09/25/[address] [facility] Diastolic (mm Hg) 83 09/25/[address] [facility] Heart Rate 91 09/25/[address] [facility] Temperature Oral (F) 98.3 F 09/25/[address] [facility] Encounters Location Location Details Encounter Type Encounter Number Reason For Visit Attending Provider ADM Date DC Date Status Source [facility] Emergency [id number] Imtiaz Davis 09/25/2016 09/26/[address] [facility] Procedures Procedure Code Date Perfomer Comments Source
--- NOTE | 2018-10-14 07:06 | Diagnostic Imaging Report ---
EXAMINATION: CHEST 2 VIEWS INDICATION: Hallux valgus right foot, hammertoe right fourth and fifth digits, right neuralgia and pain in limb, right calcaneal spur ^PRE-OP ^ACU 1 COMPARISON: None FINDINGS: PA and lateral views TUBES and LINES: None. LUNGS: Lungs are well inflated. There is no evidence of pneumonia or pulmonary edema. PLEURA: No pleural effusion or pneumothorax. HEART AND MEDIASTINUM: The cardiomediastinal silhouette is unremarkable.. BONES AND SOFT TISSUES: No focal osseous lesions. Soft tissues are unremarkable. UPPER ABDOMEN: No free air under the diaphragm. IMPRESSION: No acute thoracic abnormality. Signed by: Dr. Maranda Henriquez MD on 10/14/2018 7:03 AM
[2018-10-14 10:20] VITALS: BP 133/92
--- NOTE | 2018-10-14 11:11 | Diagnostic Imaging Report ---
Exam: Right foot radiographs-2 views Clinical History: Status post right foot surgery. Comparison: None. Findings: Limited exam secondary to portable technique and overlying cast and hardware. There is a external cylindrical device overlying the dorsal aspect of the foot which is connected to a wire lead projecting over the palmar foot and terminating overlying the calcaneal soft tissues. There are postsurgical changes related to first metatarsal osteotomy with screw and K wire present. There is also an additional K wire transfixing the fourth digit phalanges. Alignment appears maintained without acute displaced fracture. Impression: Postsurgical changes of the right foot as above with intact alignment. Signed by: Dr. Jaja Shipley MD on 10/14/2018 11:07 AM
--- NOTE | 2018-10-14 16:43 | Operative Report ---
DATE OF PROCEDURE: 10/14/2018 SURGEON: Fabian Russell DPM PREOPERATIVE DIAGNOSES: 1. Painful hallux valgus deformity, right foot. 2. Painful contracted hammertoe fourth digit, right foot. 3. Painful contracted hammertoe fifth digit, right foot. 4. Painful plantar fasciitis with heel spur syndrome, right foot. 5. Tarsal tunnel syndrome, right foot. POSTOPERATIVE DIAGNOSES: 1. Painful hallux valgus deformity, right foot. 2. Painful contracted hammertoe fourth digit, right foot. 3. Painful contracted hammertoe fifth digit, right foot. 4. Painful plantar fasciitis with heel spur syndrome, right foot. 5. Tarsal tunnel syndrome, right foot. OPERATIVE PROCEDURES: 1. Faustino bunionectomy with screw fixation, right foot. 2. Arthroplasty of fourth digit with K-wire fixation of the fourth digit, right foot. 3. Arthroplasty of fifth digit with K-wire fixation of the fifth digit, right foot. 4. Resection of plantar calcaneal heel spur. 5. Neurolysis of tibial nerve, right foot. 6. Neurolysis of medial plantar nerve, right foot. 7. Neurolysis of lateral plantar nerve, right foot. 8. Intraoperative use of fluoroscopy. 9. Trigger point shot of cortisone. 10. Application of posterior splint. ANESTHESIA: General. HEMOSTASIS: Pneumatic thigh tourniquet at 350 mmHg. PROCEDURE IN DETAIL: The patient was taken into the operating room and placed on the operating room table in supine position. Following induction of general anesthesia by the anesthesiologist, Webril wraps were placed on the patient's right thigh followed by application of right thigh tourniquet. The right lower extremity was then prepped and draped in the usual aseptic manner and following procedures were then performed. Faustino bunionectomy with screw fixation of the right foot. Attention was directed to the dorsal medial aspect of the first MPJ, where a 6-cm linear incision was performed. Incision was deepened via sharp and blunt dissection being careful to retract vital structures and ligate superficial vessels as necessary. Once the level of the capsule was reached, longitudinal capsulotomy was then performed to expose the dorsal medial exostosis of the first metatarsal head. Then using an oscillating saw, dorsal medial exostosis was excised from the operation site in toto. A V-osteotomy was then performed from medial to lateral. Capital fragment was then transpositioned laterally. Upon adequate surgical and anatomical reduction utilizing proper AO technique, a 2.0 12-mm cortical screw in conjunction with a buried 0.045 K-wire was used to achieve stability at the osteotomy site. oscillating saw and rotating bur. Arthroplasty of fourth and fifth digits with K-wire fixation of fourth. Attention was then directed to the dorsal aspect of the above mentioned toes proximal interphalangeal joint where a 3 cm linear incision was performed. Incision was deepened via sharp and blunt dissection being careful to retract vital structures and ligate superficial vessels as necessary. The head of the proximal phalanx was then clearly visualized and then resected from the operation site in toto. Her fourth toe was still noted to be contracted, so a 0.045 K-wire was introduced up to metatarsophalangeal joint to achieve proper anatomical reduction. Resection of plantar calcaneal heel spur, right foot. Attention was then directed to the medial aspect of the right heel, where a 4 to 5 cm linear incision was performed. Incision was deepened via sharp and blunt dissection. Plantar facial level was then clearly visualized. The medial half of the plantar fascia was then resected exposing the plantar calcaneal spur. Using a reciprocating saw and bur, the spur was then excised from the operation site in toto. Neurolysis of tibial nerve, neurolysis of medial plantar nerve, and neurolysis of lateral plantar nerve. Attention was then directed to the medial aspect of the right tarsal canal, where a 6 cm linear incision was performed. Incision was deepened via sharp and blunt dissection being careful to retract any vital structures and ligate any superficial vessels as necessary. Utilizing meticulous dissection, the flexor retinaculum was then completely visualized and cut. The tibial nerve was then isolated and all adhesions were removed via blunt dissection. Incision was then deepened further distally into the natasha pedis. The nerve was then followed until the medial and lateral plantar nerves were divided and neurolysis was performed to the medial and lateral plantar nerves via blunt dissection. All the soft tissue adhesions were removed. All the areas were then copiously flushed with sterile antibiotic solution and suctioned. Intraoperative use of fluoroscopy was then used to make sure proper alignment and fixation were achieved. Closure was then obtained utilizing 3-0 Vicryl, 4-0 Vicryl, and 4-0 nylon for capsule, subcutaneous tissue, and skin respectively. Trigger point shot of cortisone was then given to the first and fourth interspace of the right foot. Also, 0.5 mL of betamethasone was also injected to the right heel and the tarsal canal area. Then, approximately 18 mL of 0.5% plain Marcaine plus 7 mL of 1% Xylocaine plain were used to achieve local anesthesia in the above-mentioned surgical area. Sterile dressing was applied. Upon release of thigh tourniquet, blood hyperemia was noted immediately to all digits of the patient's right foot. Application of posterior splint. A posterior splint was then applied keeping the foot in 90 degrees with respect to the leg to try and prevent any postop complications. The patient was then transferred from the OR to recovery room with vital signs stable and neurovascular status intact. No intraoperative complications were encountered. Blood loss during the surgery was minimal. The patient to remain nonweightbearing with crutches, keep her foot elevated, and is to apply to an ice pack to the ankle joint area. SYED Corral/BENJAMIN /[id number]
== END | disposition home or self-care (01) ==
LOC: OR 06:20
PROVIDERS: ATTEND Podiatrist Foot Surgery
DX: M20.11 Hallux valgus (acquired), right foot (principal); M20.41 Other hammer toe(s) (acquired), right foot; M77.31 Calcaneal spur, right foot; G58.8 Other specified mononeuropathies; M72.2 Plantar fascial fibromatosis; G57.51 Tarsal tunnel syndrome, right lower limb; K21.9 Gastro-esophageal reflux disease without esophagitis; E78.5 Hyperlipidemia, unspecified; Z01.812 Encounter for preprocedural laboratory examination
CPT/HCPCS: 28035; 28119; 28285 ×2; 28296; 36415 ×2; 64704 ×2; 71046; 73620; 80048; 81025; 85025; C1713; J0131; J0690; J0720; J1100; J1170; J1885; J2001 ×2; J2250; J2270; J2405; J2704